=== PATIENT | female | born 1985 | race Caucasian/White ===

== ENCOUNTER 2017-04-02 22:10 | Emergency (ER) | payer OTHER ==
[~2017-04-02] VITALS: Ht 170.2 cm; Wt 104.1 kg
[~2017-04-02 22:10] MED LIST: Chromagen, Feogen, M PO; FLEXERIL10 MG PO; Micronor,Nor-Q-D,Err PO; Motrin PO; NOHOMEMEDS; PAXIL CR25 MG PO; PAXIL PO; PRENATAL1 EACH PO; VICODIN,LORT1 TABLET
[2017-04-02 22:41] LABS: ADD MIUA? NO; BILIRUBIN NEGATIVE; BLOOD NEGATIVE; COLOR YELLOW ((YELLOW)); GLUCOSE (STRIP) NEGATIVE; KETONES NEGATIVE; LEUKOCYTES NEGATIVE; NITRITE NEGATIVE; PROTEIN (STRIP) NEGATIVE; SPECIFIC GRAVITY 1.025 (1.000-1.030); UCUL ADDED? NO; UROBILINOGEN 0.2 MG/DL (0.2-1.0)
[2017-04-02 22:45] LABS: HEMATOCRIT 40.6 % (36.0-46.0); MCH 28.8 PG (29.0-34.0); MCHC 33.5 G/DL (30.0-36.0); MCV 85.8 FL (83-99); MEAN PLAT.VOLUME 8.6 uM^3 (9.5-12.4); PLATELET COUNT 198 K/uL (156-360); RBC DIS.WIDTH-CV 12.3 % (11.8-14.6); RBC DIS.WIDTH-SD 38.5 % (39-53); RED BLOOD COUNT 4.73 M/uL (3.80-5.20); WHITE BLOOD COUNT 12.2 K/uL (4.1-10.2)
[2017-04-02 22:58] LABS: CHLORIDE 104 mEq/L (99-109); POTASSIUM 4.2 mEq/L (3.7-5.4); SODIUM 140 mEq/L (136-147)
[2017-04-02 23:00] LABS: GLUCOSE 103 mg/dL (70-99)
[2017-04-02 23:02] LABS: ANION GAP 11 MEQ/L (2-14); TOTAL BILIRUBIN 0.2 mg/dL (0.0-1.0)
[2017-04-02 23:04] LABS: ALKALINE PHOSPHATASE 61 IU/L (3-129); GFR ESTIMATE (CALCULATED) > 59 mL/min/
[2017-04-02 23:05] LABS: UREA NITROGEN (BUN) 15 mg/dL (9-23)
[2017-04-02 23:07] LABS: LIPASE 26 U/L (1.0-51.0)
[2017-04-02 23:18] LABS: QUANTITATIVE HCG < 4.0 MIU/ML
[2017-04-03] MEDS ORDERED: BENTYL10 MG PO (00:54)
[2017-04-03] MEDS ORDERED: CIPRO500 MG PO (00:54)
[2017-04-03] MEDS ORDERED: FLAGYL500 MG PO (00:54)
[2017-04-03 01:06] VITALS: BP 166/80
== END 2017-04-03 01:07 | disposition home or self-care (01) ==
LOC: EME 22:10
DX: R19.7 Diarrhea, unspecified (principal); R10.9 Unspecified abdominal pain; E11.9 Type 2 diabetes mellitus without complications; I10 Essential (primary) hypertension; Z87.442 Personal history of urinary calculi; F17.200 Nicotine dependence, unspecified, uncomplicated; Z88.6 Allergy status to analgesic agent
CPT/HCPCS: 74177; 80053; 81003; 83690; 84702; 85027; 87493; 87506; 99281; 99284; J2765; J7030